=== PATIENT | male | born 1940 | race Caucasian/White ===

== ENCOUNTER 2018-03-22 13:45 | Emergency (ER) | payer MEDICARE, SELFPAY ==
[2018-03-22 14:50] VITALS: BP 144/86; PULSE 61; RESP 18; TEMP 36.9; O2SAT 97; BMI 27.8
== END 2018-03-22 15:47 | disposition left against medical advice (07) ==
LOC: ED 13:49
PROVIDERS: PCP Family Medicine
DX: S61.211A Laceration without foreign body of left index finger without damage to nail, initial encounter (principal); W26.0XXA Contact with knife, initial encounter
CPT/HCPCS: 99281; 99282